=== PATIENT | male | born 1960 | race Two or more races ===

== ENCOUNTER → 2025-04-12 | Outpatient (CLI) | payer MEDICAID, SELFPAY ==
--- NOTE | 2025-04-12 17:00 | XR_ITS ---
Examination: CT lung low dose screening, without contrast. 2-D sagittal reconstructions. 2-D coronal reconstructions. 3-D reconstructions. Date and time of exam: April 12, 2025, 1227 hours, comparison June 06, 2023 INDICATIONS: Shortness of breath 2 years, diagnosis pulmonary fibrosis, bronchiectasis CTDI: vol (mGy): 13.1 DLP: (mGycm): 429 Technique: Multiple 1.25 mm axial sections of the lung low dose screening have been obtained. 2-D sagittal and coronal reconstructions have been obtained. 3-D reconstructions have been obtained. Low dose protocols were performed. One or more of the following dose reduction techniques were used; automated exposure control, adjustment of the mA and/or KV according to patient size, use of iterative reconstruction technique. Findings: Thyromegaly with small calcifications and poorly defined subcentimeter nodules No thoracic aortic aneurysmal dilatation Pulmonary artery segments are not enlarged Mild enlargement cardiac contour Trace pericardial thickening 4 mm 3 mm pulmonary nodules posterior left upper lobe 3 mm pulmonary nodule posterior left upper lobe 3 mm pulmonary nodule posterior right upper lobe 3 mm pulmonary nodule anterior segment left upper lobe 10 mm, 8 mm pulmonary nodules right lower lobe Bronchiectasis in the right lower lobe for instance image 48 Fatty infiltration throughout the liver No gallstones Spleen not enlarged No pancreatic mass Moderate osteopenia IMPRESSION: Thyromegaly with calcifications and poorly defined subcentimeter nodules, recommend dedicated thyroid sonography follow-up Pulmonary nodules as above, recommend 6-month follow-up CT chest without contrast Bronchiectasis/scarring in the lower lobes bilaterally, no significant change
== END | disposition home or self-care (01) ==
PROVIDERS: PCP Physician Assistant; Referring Provider Internal Medicine Critical Care Medicine; Visit Provider Internal Medicine Critical Care Medicine
DX: E01.0 Iodine-deficiency related diffuse (endemic) goiter (principal); R91.8 Other nonspecific abnormal finding of lung field; R05.3 Chronic cough
CPT/HCPCS: 71271